=== PATIENT | male | born 1980 | race Caucasian/White ===

== ENCOUNTER → 2020-09-06 | Day surgery (SDC) | payer OTHER ==
[~2020-09-06] MED LIST: ABILIFY2 MG PO; AMIODARONE HCL200 MG PO; AMITRIPTYLINE H25 MG PO; AMLODIPINE BESY10 MG PO; ATORVASTATIN CA20 MG PO; BENZOCAINE 20% SPR 60 ML CAN ONE; CITALOPRAM HBR20 MG PO; DIGOXIN125 MCG PO; DIPHENHYDRAMINE HCL INJ 50 MG/ML VIAL ONE; FENTANYL CITRATE/PF 100MCG/2 ML INJ ONE; LOSARTAN-HCTZ1 EAC1 PO; METOPROLOL TART25 MG PO; MIDAZOLAM HCL 2 MG/2 ML VIAL ONE; REVATIO20 MG PO; SODIUM CHLORIDE 0.9% 1000ML 1,000 ML ONE; WELLBUTRIN SR100 MG PO; XARELTO20 MG PO; testosterone IM
[2020-09-06 10:30] VITALS: BP 138/87
[2020-09-06 10:55] LABS: BASOPHILS # (AUTO) 0.1 (0.0-0.1); BASOPHILS % 1.9 % (0.0-1.0); EOSINOPHILS # (AUTO) 0.1 (0.0-0.4); EOSINOPHILS % 2.2 % (0.0-6.0); HEMATOCRIT 48.4 % (38.2-49.6); HEMOGLOBIN 16.4 g/dL (14.0-18.0); LYMPHOCYTES # (AUTO) 2.1 (1.0-3.2); LYMPHOCYTES % 39.3 % (18.0-39.1); MEAN CORPUSCULAR HGB CONC 33.9 g/dL (31-35); MEAN CORPUSCULAR VOLUME 97.4 fL (81-99); MONOCYTES # (AUTO) 0.7 (0.2-0.8); MONOCYTES % 12.7 % (4.4-11.3); NEUTROPHILS # (AUTO) 2.4 (2.1-6.9); NEUTROPHILS % 43.7 % (38.7-80.0); PLATELET COUNT 223 x10e3/uL (140-360); RED BLOOD COUNT 4.97 x10e6/uL (4.3-5.7)
[2020-09-06 11:23] LABS: ALBUMIN 4.2 g/dL (3.5-5.0); ALBUMIN/GLOBULIN RATIO 1.3 (0.8-2.0); ANION GAP 14.5 mmol/L (8-16); CALCIUM 9.1 mg/dL (8.4-10.2); CREATININE, SERUM 1.23 mg/dL (0.72-1.25); POTASSIUM 4.5 mmol/L (3.5-5.1)
[2020-09-06 13:55] VITALS: BP 97/56
[2020-09-06 14:10] VITALS: BP 100/62
[2020-09-06 14:22] VITALS: BP 104/64
[2020-09-06 14:36] VITALS: BP 97/62
[2020-09-06 14:53] VITALS: BP 98/53
== END | disposition home or self-care (01) ==
LOC: CATH LAB 10:08
PROVIDERS: ATTEND Internal Medicine Interventional Cardiology
DX: I48.91 Unspecified atrial fibrillation (principal); I20.8 Other forms of angina pectoris; I10 Essential (primary) hypertension; E78.00 Pure hypercholesterolemia, unspecified; Z79.02 Long term (current) use of antithrombotics/antiplatelets; Z68.35 Body mass index [BMI] 35.0-35.9, adult; Z82.49 Family history of ischemic heart disease and other diseases of the circulatory system
CPT/HCPCS: 36415; 80053; 83880; 85025; 92960; 93005; 93312; 93320; 93325; J1200; J2250; J3010; J7030; 93307; 99152